=== PATIENT | female | born 1950 | race African-American/Black ===

== ENCOUNTER 2019-02-16 23:38 | Inpatient (IN) | payer OTHER, BC ==
[~2019-02-16] VITALS: Ht 165.1 cm; Wt 91.2 kg
[2019-02-16 23:40] VITALS: BP 144/83
[2019-02-17] VITALS (7 sets, daily range): BP systolic 118–147; BP diastolic 58–86
[2019-02-17] MEDS ORDERED: PRINIVIL20 M1 (00:02)
[2019-02-17] MEDS ORDERED: POTASSIUM20 PO (00:03)
[2019-02-17] MEDS ORDERED: CARVEDILOL12.5 MG PO (00:03)
[2019-02-17] MEDS ORDERED: LASIX 40 MG TAB40 MG PO (00:03)
[2019-02-17] MEDS ORDERED: LIPITOR10 MG PO (00:04)
[2019-02-17] MEDS ORDERED: ASA81BEC PO (00:04)
[2019-02-17 00:33] LABS: ANION GAP 11 mmol/L (7-16); BUN 16 mg/dL (7-18); CHLORIDE 105 mmol/L (98-107); CO2 25 mmol/L (21-32); CREATININE 1.1 mg/dL (0.6-1.0); GLUCOSE 120 mg/dL (74-106); SODIUM 141 mmol/L (136-145)
[2019-02-17 00:36] LABS: APTT 25.7 Seconds (24.5-32.8); PROTIME 10.2 Seconds (9.3-11.4)
[2019-02-17 00:44] LABS: ALBUMIN 3.3 g/dL (3.4-5.0); MAGNESIUM 1.7 mg/dL (1.8-2.4); SGOT 20 U/L (15-37); SGPT 12 U/L (30-65); TOTAL BILIRUBIN 0.2 mg/dL (<0.1-1.0); TOTAL PROTEIN 7.3 g/dL (6.4-8.2); TROPONIN-I <0.06 ng/mL (<0.06)
[2019-02-17 01:12] LABS: HEMATOCRIT 38.5 % (37.0-47.0); HEMOGLOBIN 12.2 gm/dL (12.0-15.0); MCH 24.2 pg (26.0-34.0); MCHC 31.8 g/dL (28.0-37.0); MCV 76.3 fL (80.0-100.0); PLATELET COUNT 164 thou/uL (150-400); RBC 5.04 mil/uL (4.20-5.00); RDW 15.8 % (10.5-14.5); WBC 5.1 thou/uL (4.0-11.0)
[2019-02-17 01:51] LABS: AMP/METHAMP Negative (Negative); BARBITURATES Negative (Negative); BENZODIAZEPINES Negative (Negative); COCAINE Negative (Negative); METHADONE Negative (Negative); OPIATES Negative (Negative); PCP Negative (Negative)
[2019-02-17 02:26] LABS: ABSOLUTE NEUTROPHILS 1.7 thou/uL (1.4-8.2)
[2019-02-17 02:27] LABS: ANISOCYTOSIS 1+; PLATELET ESTIMATE NORMAL; POIKILOCYTOSIS 1+
--- NOTE | 2019-02-17 04:52 | NUR ---
PT ADMITTED FROM ED WITH CHEST PAIN.ARRIVED TO UNIT VIA W/C.PT WAS ABLE TO AMBULATE WITH STEADY GAIT TO BED.DENIES CHEST PAIN UPON ARRIVAL TO UNIT OR ANY DISTRESS.ORIENTED TO RM AND UNIT ACTIVITIES.SR W/BBB ON MONITOR.VSS.RA W/O RESP DISTRESS.A/OX4.ADMISSION ASSESSMENT COMPLETED DOCUMENTED.NO CONCERNS VOICED AT THIS TIME.PT NPO AFTER MIDNOC.BROACHING MACHINE OPERATOR CONSULTED.WILL CONT TO MONITOR PER POC.
[2019-02-17 05:49] LABS: CHOLESTEROL 188 mg/dL (<200); HDL CHOLESTEROL 61 mg/dL (>40); LDL CHOLESTEROL 116 mg/dL (<100); TC:HDL 3.1 Ratio (Not establshd); TRIGLYCERIDE 56 mg/dL (<150); VLDL 11 mg/dL (<40)
[2019-02-17 06:00] LABS: SERUM ASSESSMENT Clear
--- NOTE | 2019-02-17 07:22 | NUR ---
PT RESTED WELL NO C/O CHEST PAIN OR ANY DISTRESS AT THIS TIME.CARDIOLOGY CONSULTED.
--- NOTE | 2019-02-17 08:49 | 2DMMODE ---
[facility] [place] [address] 2 D/M-MODE ECHOCARDIOGRAM Name: MARISELA SHINE Room #: 219-P ADM IN ..#: [id number] Admission: 02/17/19 Attend Phys: Antolin Hernadez MD Discharge: Date of : 52 Report #: [id number] THIS REPORT FOR: //name// APPROVED REPORT Study performed: 02/17/2019 06:57:08 EXAM: Comprehensive 2D, Doppler, and color-flow Echocardiogram Patient Location: Bedside Room #: 219 Status: routine BSA: 1.98 HR: 69 bpm BP: 120/58 mmHg Rhythm: LBBB Other Information Study Quality: Good Indications Chest pain. LBBB. Hx: Cardiomyopathy, CHF, HTN, HLD. 2D Dimensions RVDd: 32.07 mm IVSd: 9.86 (7-11mm) LVOT Diam: 19.79 (18-24mm) LVDd: 66.25 mm PWd: 9.87 (7-11mm) Ascending Ao: 30.73 (22-36mm) LVDs: 57.80 (25-40mm) Aortic Root: 29.51 mm Volumes Left Atrial Volume (Systole) Single Plane 4CH: 101.01 mL Single Plane 2CH: 67.97 mL LA ESV Index: 44.00 mL/m2 Aortic Valve AoV Peak Hernan.: 1.37 m/s AO Peak Gr.: 7.47 mmHg LVOT Max P.62 mmHg LVOT Max V: 0.81 m/s ROSANA Vmax: 1.82 cm2 Pulmonary Valve PV Peak Hernan.: 0.94 m/s PV Peak Gr.: 3.51 mmHg [facility] [email or web address] [email or web address] [address] 2 D/M-MODE ECHOCARDIOGRAM Name: MARISELA SHINE Room #: 219-P [facility] IN [facility].#: [id number] Admission: 02/17/19 Attend Phys: Antolin Hernadez MD Discharge: Date of : 52 Report #: [id number] Tricuspid Valve TR Peak Hernan.: 2.60 m/s RAP Estimate: 5.00 mmHg TR Peak Gr.: 27.02 mmHg PA Pressure: 32.00 mmHg Left Ventricle Left ventricle is moderately dilated. There is global hypokinesis of the left ventricle. There is normal left ventricular wall thickness. Left ventricular systolic function is severely decreased. LVEF is 25%. This study is not technically sufficient to allow evaluation of the LV diastolic function. Right Ventricle The right ventricle is normal size. The right ventricular systolic function is normal. Atria Left atrium is moderately dilated. Atrial septal aneurysm is present. Possible PFO The right atrium size is normal. Aortic Valve The aortic valve is mildly sclerotic. Mild aortic regurgitation. There is no aortic valvular stenosis. Mitral Valve Mild mitral annular calcification. Moderate mitral regurgitation. Tricuspid Valve The tricuspid valve is normal in structure. Trace to mild tricuspid regurgitation. Estimated PAP is 30-35mmHg. Pulmonic Valve Pulmonic valve is not well visualized. Great Vessels The aortic root is normal in size. The ascending aorta is normal in size. IVC is normal in size and collapses >50% with inspiration. Pericardium There is no pericardial effusion. <Conclusion> Left ventricular systolic function is severely decreased. There is global hypokinesis of the left ventricle. [facility] [place] [address] 2 D/M-MODE ECHOCARDIOGRAM Name: MARISELA SHINE Room #: 219-P [facility] IN .R.#: [id number] Admission: 02/17/19 Attend Phys: Antolin Hernadez MD Discharge: Date of : 52 Report #: [id number] LVEF is 25%. Left atrium is moderately dilated. Atrial septal aneurysm is present. Possible PFO The aortic valve is mildly sclerotic. Mild aortic regurgitation, no stenosis. Mild mitral annular calcification. Moderate mitral regurgitation. Trace to mild tricuspid regurgitation. Estimated pulmonary artery pressure of 30-35mmHg. There is no pericardial effusion. <ELECTRONICALLY SIGNED> By: Rakan Vargas MD, [facility] 02/17/19 [id number] [id number] Rakan Vargas MD, FACC /INF
--- NOTE | 2019-02-17 09:02 | EKG ---
[address] [address] ELECTROCARDIOGRAM REPORT Name: MARISELA SHINE Room #: 219-[facility] IN ..#: [id number] Admission: 02/17/19 Attend Phys: Antolin Hernadez MD Discharge: Date of : 52 Report #: [id number] THIS REPORT FOR: //name// [facility] ED Test Date: 2019-02-16 Test Time: 23:54:38 Pat Name: MARISELA UMER MOTA Department: Room: 219 Gender: F Bracer: : 1950 Requested By: Thien Condon Order Number: [id number] MD: Rakan Vargas Measurements Intervals Fisher Rate: 84 P: 52 AK: 184 QRS: -22 QRSD: 167 T: 169 QT: 469 QTc: 555 Interpretive Statements Sinus rhythm Atrial premature complex Left bundle branch block No previous ECG available for comparison Electronically Signed On 02-17-2019 9:01:57 PARLIAMENTARY ARCHIVIST by Rakan Vargas [email or web address] <ELECTRONICALLY SIGNED> By: Rakan Vargas MD, [facility] 02/17/19 0901 [id number] [phone] Rakan Vargas MD, FAC /EPI
--- NOTE | 2019-02-17 09:07 | EKG ---
[address] [address] ELECTROCARDIOGRAM REPORT Name: MARISELA SHINE Room #: 219-[facility] IN .R.#: [id number] Admission: 02/17/19 Attend Phys: Antolin Hernadez MD Discharge: Date of : 52 Report #: [id number] THIS REPORT FOR: //name// [facility] Test Date: 2019-02-17 Test Time: 08:33:00 Pat Name: MARISELA UMER MOTA Department: Room: 219 Gender: F Sales And Marketing Specialist: OSITO : 1950 Requested By: Nydia Roque Order Number: [id number] MD: Rakan Vargas Measurements Intervals Bois D Arc Rate: 73 P: 51 AK: 196 QRS: -20 QRSD: 165 T: 153 QT: 480 QTc: 529 Interpretive Statements Sinus rhythm Probable left atrial enlargement Left bundle branch block No previous ECG available for comparison Electronically Signed On 02-17-2019 9:06:44 VENDING MACHINE ASSEMBLER by Rakan Vargas [email or web address] <ELECTRONICALLY SIGNED> By: Rakan Vargas MD, [facility] 02/17/1906 2 2 Rakan Vargas MD, [facility] /EPI
--- NOTE | 2019-02-17 09:17 | NUR ---
PATIENT CARE ASSUMED, ASSESSMENT CHARTED, ALERT AND ORIENTED X4, NO COMPLAINTS OF PAIN, NO NEEDS VOICED, WILL CONTINUE TO MONITOR
--- NOTE | 2019-02-17 18:09 | NUR ---
PATIENT DISCHARGED TO HOME. DISCHARGE INSTRUCTIONS GIVEN TO PATIENT. STATED UNDERSTANDING. SALINE LOCK AND TELEMETRY REMOVED.
[2019-02-17 23:06] LABS: GLYCOHEMOGLOBIN (HGB A1C) 5.3 % (4.8-5.6)
== END 2019-02-17 16:54 | disposition home or self-care (01) | DRG 206 ==
LOC: ER 23:38 → EROBS 02-17 02:04 → 2N 02-17 02:04 → ENTRNSPT 02-17 16:44 → 2N 02-17 16:54
PROVIDERS: Emergency Medicine; Nurse Practitioner Family; ADMIT Hospitalist
DX: M94.0 Chondrocostal junction syndrome [Tietze] (principal); I42.9 Cardiomyopathy, unspecified; I50.20 Unspecified systolic (congestive) heart failure; E78.5 Hyperlipidemia, unspecified; I11.0 Hypertensive heart disease with heart failure; Z79.82 Long term (current) use of aspirin; Z79.899 Other long term (current) drug therapy; Z82.49 Family history of ischemic heart disease and other diseases of the circulatory system; Z82.3 Family history of stroke; Z90.710 Acquired absence of both cervix and uterus
CPT/HCPCS: 10081